=== PATIENT | male | born 1970 | race Caucasian/White ===

== ENCOUNTER 2018-11-04 13:40 | Observation (INO) | payer OTHER ==
[2018-11-04] MEDS ORDERED: CLINDAMYCIN 600 MG in DEXTROSE 5% IN WATER 50 ML IVPB STA ×2 (15:24)
[2018-11-04 15:34] LABS: ALT 59 U/L (21-72); AST 51 U/L (17-59); Albumin 4.3 g/dL (3.5-5.0); Alkaline Phosphatase 70 U/L (38-126); Anion Gap 11 mmol/L; Blood Urea Nitrogen 17 mg/dL (9-20); Calcium 8.8 mg/dL (8.4-10.2); Carbon Dioxide 21 mmol/L (22-30); Chloride 107 mmol/L (98-107); Glucose 132 mg/dL (74-99); Potassium 4.3 mmol/L (3.5-5.1); Sodium 139 mmol/L (137-145); Total Bilirubin 0.8 mg/dL (0.2-1.3); Total Protein 7.9 g/dL (6.3-8.2)
[2018-11-04 15:41] LABS: Basophils # (A) 0.1 k/uL (0-0.2); Basophils % (A) 1 %; Eosinophils # (A) 0.2 k/uL (0-0.7); Eosinophils % (A) 2 %; HCT 48.8 % (39.0-53.0); HGB 15.8 gm/dL (13.0-17.5); Lymphocytes # (A) 1.9 k/uL (1.0-4.8); Lymphocytes % (A) 21 %; MCH 28.8 pg (25.0-35.0); MCHC 32.3 g/dL (31.0-37.0); MCV 89.1 fL (80.0-100.0); Mean Platelet Volume 6.6; Monocytes # (A) 0.7 k/uL (0-1.0); Monocytes % (A) 7 %; Neutrophils # (A) 6.1 k/uL (1.3-7.7); Neutrophils % (A) 68 %; Platelet Count 357 k/uL (150-450); RBC 5.48 m/uL (4.30-5.90); RDW 13.6 % (11.5-15.5)
--- NOTE | 2018-11-04 15:55 | ED ---
Lower Extremity Injury HPI - General Chief Complaint: Extremity Injury, Lower Stated Complaint: Foot infection sent by [email or web address] Time Seen by Provider: 11/04/18 14:17 Source: patient Mode of arrival: ambulatory Limitations: no limitations - History of Present Illness Initial Comments: This is a 48-year-old male who denies past medical history presenting today for chief complaint of right foot redness. She states about 2 weeks ago he stepped on with bare feet A. tack strip cutting the lateral aspect just proximal to the MTP joint of the fifth toe of the right foot. He states that since he has noticed occasional pain in the right foot but didnt notice any specific redness. Patient states that his girlfriend who is a nurse evaluated his foot this morning and thought it was infected due to redness with extension toward proximal thigh and that he should present to the emergency department for evaluation. Patient did have another area of injury, he dropped a knife on his right great toe. He states this barely hurt at the time, and he noted mild surrounding erythema of this area as well no pain to palpation or ROM. She states the area of redness near the entry of the tach is tender to palpation. Patient states tetanus is up-to-date within the last 3 years. Patient denies any numbness, tingling, loss sensation. Patient did state he felt as though he had a low-grade fever on Thursday with chills. Patient denies any night sweats. Patient presented to an urgent care clinic an hour prior to arrival in the ER where he was given 1 g of Rocephin and sent to the emergency department for further evaluation. Remaining review of systems negative, Patient denies any shortness of breath, chest pain, back pain, abdominal pain, nausea or vomiting, numbness or tingling, dysuria or hematuria, constipation or diarrhea, headaches or visual changes, or any other complaints. Upon arrival patient is afebrile he does not appear toxic. - Related Data Home Medications Medication Instructions Recorded Confirmed No Known Home Medications 11/04/18 11/04/18 Allergies Allergy/AdvReac Type Severity Reaction Status Date / Time No Known Allergies Allergy Verified 11/04/18 14:00 Review of Systems ROS Statement: Those systems with pertinent positive or pertinent negative responses have been documented in the HPI. ROS Other: All systems not noted in ROS Statement are negative. Past Medical History Past Medical History: No Reported History Additional Past Medical History / Comment(s): Chantal Burnett History of Any Multi-Drug Resistant Organisms: None Reported Past Surgical History: No Surgical Hx Reported Past Psychological History: No Psychological Hx Reported Smoking Status: Never smoker Past Alcohol Use History: None Reported Past Drug Use History: None Reported General Exam - General Exam Comments Initial Comments: General: The patient is awake and alert, in no distress, and does not appear acutely ill. Eye: Pupils are equal, round and reactive to light, extra-ocular movements are intact. No nystagmus. There is normal conjunctiva bilaterally. No signs of icterus. Ears, nose, mouth and throat: There are moist mucous membranes and no oral lesions. Neck: The neck is supple, there is no tenderness or JVD. Cardiovascular: There is a regular rate and rhythm. No murmur, rub or gallop is appreciated. Respiratory: Lungs are clear to auscultation, respirations are non-labored, breath sounds are equal. No wheezes, stridor, rales, or rhonchi. Gastrointestinal: [Soft, non-distended, non-tender abdomen without masses or organomegaly noted. There is no rebound or guarding present. No CVA tenderness. Bowel sounds are unremarkable.] Musculoskeletal: Upon inspection of the feet bilaterally, there is dryness and cracking of skin over all plantar aspects of the feet/toes of the feet bilaterally. There is an area of entry over the lateral aspect of the right foot, with wound dehiscence no palpable abscess mild surrounding erythema that extends from the site of injury across the forefoot and up the medial aspect of the leg towards the medial aspect of the right knee. Area is warm to palpation. Patient does admit to mild discomfort with palpation of the erythematous area. Patient is able to fully weight-bear with normal ROM, all 5 digits of the right foot equal comparison to the right and at the right knee and hip. Strength 5/5. Sensation intact of the LE equal b/l. DP rand radial pulses equal bilaterally 2+. Neurological: A&O x 3. CN II-XII intact, There are no obvious motor or sensory deficits. Coordination appears grossly intact. Speech is normal. Skin: Skin is warm and dry and no rashes or lesions are noted. Psychiatric: Cooperative, appropriate mood & affect, normal judgment. Limitations: no limitations Course Vital Signs 11/04/18 14:00 Temperature 98.9 F Pulse Rate 66 Respiratory 18 Rate Blood Pressure 136/78 O2 Sat by Pulse 99 Oximetry Medical Decision Making - Medical Decision Making Well-appearing 48-year-old male presenting today for erythema of the right foot. Patient has history of right foot injury, there is no involvement of the sole shoe. Patient states she is barefoot at this time. Patient on physical examination has extensive cellulitis from the bottom lateral aspect of the right foot extending toward the medial aspect of the right thigh/knee. Patient is afebrile, appears nontoxic. No leukocytosis. Patient was given 1 g of Rocephin prior to arrival. At this time given extent of cellulitis, I feel patient would benefit from [place] with intravenous antibiotics, patient was started on clindamycin 6 her milligrams every [address] Rosas did evaluate patient agreeing with impression and plan. Pt admitted to Dr. Randall. Transferred to the floor in stable condition appearing well. Blood culture pending. - Lab Data Result diagrams: 11/04/18 15:11 11/04/18 15:11 Lab Results 11/04/18 11/04/18 Range/Units 15:11 15:11 WBC 9.0 (3.8-10.6) k/uL RBC 5.48 (4.30-5.90) m/uL Hgb 15.8 (13.0-17.5) gm/dL Hct 48.8 (39.0-53.0) % MCV 89.1 (80.0-100.0) fL MCH 28.8 (25.0-35.0) pg MCHC 32.3 (31.0-37.0) g/dL RDW 13.6 (11.5-15.5) % Plt Count 357 (150-450) k/uL Neutrophils % 68 % Lymphocytes % 21 % Monocytes % 7 % Eosinophils % 2 % Basophils % 1 % Neutrophils # 6.1 (1.3-7.7) k/uL Lymphocytes # 1.9 (1.0-4.8) k/uL Monocytes # 0.7 (0-1.0) k/uL Eosinophils # 0.2 (0-0.7) k/uL Basophils # 0.1 (0-0.2) k/uL Sodium 139 (137-145) mmol/L Potassium 4.3 (3.5-5.1) mmol/L Chloride 107 (98-107) mmol/L Carbon Dioxide 21 L (22-30) mmol/L Anion Gap 11 mmol/L BUN 17 (9-20) mg/dL Creatinine 0.87 (0.66-1.25) mg/dL Est GFR (CKD-EPI)AfAm >90 (>60 ml/min/1.73 sqM) Est GFR (CKD-EPI)NonAf >90 (>60 ml/min/1.73 sqM) Glucose 132 H (74-99) mg/dL Calcium 8.8 (8.4-10.2) mg/dL Total Bilirubin 0.8 (0.2-1.3) mg/dL AST 51 (17-59) U/L ALT 59 (21-72) U/L Alkaline Phosphatase 70 (38-126) U/L Total Protein 7.9 (6.3-8.2) g/dL Albumin 4.3 (3.5-5.0) g/dL Disposition Clinical Impression: Cellulitis of right foot Disposition: ADMITTED IP TO THIS HOSP Condition: Stable Is patient prescribed a controlled substance at d/c from ED?: No Referrals: Jean Carlos Sloan MD [Primary Care Provider] - 1-2 days Time of Disposition: 16:13 Decision to Admit Reason: Admit from EC Decision Date: 11/04/18 Decision Time: 16:13
[2018-11-04] MEDS ORDERED: NALOXONE 0.4 MG/ML 1 ML VIAL IV PRN (16:14)
[2018-11-04] MEDS ORDERED: IBUPROFEN 400 MG TAB PO PRN (16:14)
[2018-11-04] MEDS ORDERED: ACETAMINOPHEN TAB 325 MG TAB PO PRN (16:14)
[2018-11-04] MEDS: SODIUM CHLORIDE 0.9% 1,000 ML IV SCH (17:39)
[2018-11-04] MEDS: CLINDAMYCIN 600 MG in DEXTROSE 5% IN WATER 50 ML IVPB SCH ×2 (23:58)
--- NOTE | 2018-11-05 00:49 | XR ---
EXAM: XR Right Foot Complete, 3 or More Views CLINICAL HISTORY: ITS.REASON XR Reason: foreign body/osteomyelitis TECHNIQUE: Frontal, lateral and oblique views of the right foot. COMPARISON: None FINDINGS: Bones/joints: No acute fracture or dislocation identified. Mild degenerative change of the right first MTP joint. Small plantar calcaneal spur. Mild degenerative changes of the dorsal midfoot. Soft tissues: Possible mild soft tissue swelling and linear lucency in the lateral right foot at the level of the mid fifth metatarsal. No radiopaque foreign body identified. IMPRESSION: No acute fracture or dislocation or evidence of osteomyelitis. Question mild soft tissue swelling and possible soft tissue laceration in the right lateral foot. No radiopaque foreign body identified.
[2018-11-05] MEDS: SODIUM CHLORIDE 0.9% 1,000 ML IV SCH ×2 (05:29→18:10)
--- NOTE | 2018-11-05 07:18 | HP ---
HISTORY AND PHYSICAL CHIEF COMPLAINT: A 48-year-old white male who stepped on some carpet tacking on his right heel 2 weeks ago. He has had increased redness on his foot since then spreading up to the middle of his right leg all the way up above his knee. His girlfriend brought him here, she is a nurse fretted instrument repairer, due to increased redness and swelling and low-grade fevers, failed outpatient treatment. Came to hospital. He came in and was given Rocephin in the ER and admitted to the hospital. Does not appear toxic. MEDICATIONS: Negative home medications. ALLERGIES: Negative. REVIEW OF SYSTEMS: Fourteen point review of systems negative except for mentioned in HPI. No fevers, chills, myalgias. PAST MEDICAL HISTORY: Simons's palsy. SOCIAL HISTORY: No smoking, alcohol or illicit drugs. PHYSICAL EXAMINATION: Vital signs are stable. Afebrile. Pupils equal, round, reactive. LUNGS: Clear. CARDIOVASCULAR: S1, S2. ENT: External ear canals within normal limits. GI: Soft, nontender. INTEGUMENT: As mentioned above. He has some redness and swelling to the middle of the right leg from the ankle up to the mid thigh area up to the hip. Started on IV antibiotics. Await Infectious Disease consultation. Pain control. Tetanus shot 3 years ago. Please see further orders. MMODL / IJN: [id number] /
[2018-11-05] MEDS: CLINDAMYCIN 600 MG in DEXTROSE 5% IN WATER 50 ML IVPB SCH ×4 (08:37→15:42)
[2018-11-05 10:41] LABS: Basophils # (A) 0.1 k/uL (0-0.2); Basophils % (A) 1 %; Eosinophils # (A) 0.2 k/uL (0-0.7); Eosinophils % (A) 2 %; HCT 47.4 % (39.0-53.0); HGB 15.2 gm/dL (13.0-17.5); Lymphocytes # (A) 2.1 k/uL (1.0-4.8); Lymphocytes % (A) 22 %; MCH 28.6 pg (25.0-35.0); MCHC 32.1 g/dL (31.0-37.0); MCV 88.9 fL (80.0-100.0); Mean Platelet Volume 5.9; Monocytes # (A) 0.7 k/uL (0-1.0); Monocytes % (A) 8 %; Neutrophils # (A) 6.1 k/uL (1.3-7.7); Neutrophils % (A) 65 %; Platelet Count 394 k/uL (150-450); RBC 5.33 m/uL (4.30-5.90); RDW 13.4 % (11.5-15.5); WBC 9.3 k/uL (3.8-10.6)
[2018-11-05] MEDS: ceFAZolin IN SWFI 2 GM/20 ML SYRINGE IVP SCH ×2 (17:12→23:08)
[2018-11-05 22:43] VITALS: PULSE 66
[2018-11-06 06:35] VITALS: BP 117/52; RESP 15; TEMP 98.4
--- NOTE | 2018-11-06 09:01 | PN ---
PROGRESS NOTE SUBJECTIVE: This is a white male admitted with cellulitis of the right leg, foot laceration, right heel. Remains on IV at Kefzol 2 g q.8 hours. He has got improvement in the redness and swelling of his entire right leg. Possible discharge home tomorrow if he continues to have improvement on IV Kefzol. Vital signs stable. Afebrile. White count is normal. No fevers. CARDIOVASCULAR: S1, S2. LUNGS: Clear. GI: Soft. Left foot . He is able to touch his right foot without any pain. This is the first time he has done this in days due to severe swelling and redness which is diminishing greatly. Infectious disease consult is appreciated. ASSESSMENT: Laceration right heel, improving. Scab formation in place, cellulitis of the right foot radiating up to the right groin is greatly improved including in the foot. Very minimal redness seen on the leg at this point. Improved cellulitis of the right leg, foot laceration, right heel. Continue current IV antibiotics and possible switch to oral antibiotics and discharged home next 24 hours. MMODL / IJN: [id number] /
--- NOTE | 2018-11-06 09:22 | CONS ---
CONSULTATION DATE OF SERVICE: 11/05/2018. REASON FOR FOLLOWUP: Right foot cellulitis. HISTORY OF PRESENT ILLNESS: The patient is a 48 -year-old male who apparently did have an injury to his right foot when he was walking barefoot on a track strip of his right foot that happened about 2 weeks ago. The patient did not have any significant symptoms at that point except some right pain. No significantly bleeding. However, for the last 3 days, he still noticed having pain in the right foot area. Pain was mostly dull aching, initially going to 2-3 that subsequently increased in intensity and became more painful, more throbbing. The patient subsequently noticed that his right foot became swollen and red. The patient did go to the Urgent Care where the patient did receive a dose of Rocephin and subsequently has been sent to the [facility] ER for further evaluation. The patient was started on clindamycin and admitted to the hospital. Infectious disease was consulted for further recommendation regarding antibiotic therapy. The patient has been admitted to the hospital. No fever has been recorded. The patient's white count was not elevated normal as well. Patient denies having any antibiotic allergies. REVIEW OF SYSTEMS: Positive for weakness. No high-grade fever. Eyes no complaint. ENT no complaint. Respiratory no complaint. Cardiovascular no complaint. no complaint. GASTROINTESTINAL: No complaint. Musculoskeletal as per HPI. INTEGUMENTARY as per HPI. Psychological: No complaint. Endocrine no complaint. Neurologic no complaint. PAST MEDICAL HISTORY: Simons's palsy. PAST SURGICAL HISTORY: No surgery. SOCIAL HISTORY: No history of smoking, drinking or drug use. FAMILY HISTORY: No pertinent findings noticed. ALLERGIES: No known drug allergies. MEDICATIONS: The patient is currently on Clindamycin 600 Narcan, Motrin, Tylenol, and IV fluid. PHYSICAL EXAMINATION: Blood pressure 139/80 with a pulse of 66, temperature 98.8. He is 98% on room air. General description is a middle-aged male lying in bed in no distress. No tachypnea or accessory muscles of respiration use. HEENT: Shows no pallor or scleral icterus. Oral mucosa membranes are dry. No pharyngeal erythema or thrush. Neck trachea central. No thyromegaly. Lungs unlabored breathing. Clear to auscultation anteriorly. No wheeze or crackles. Heart S1, S2. Regular rate and rhythm. ABDOMEN: Soft, no tenderness. No guarding or rigidity. Extremities: No edema of the feet. Examination of the right foot: dorsal aspect, he has minimal swelling and redness and slightly warm to touch. Patient with wound on the plantar aspect of the right foot lateral border. No purulent drainage was noticed. Neurological: Patient is awake, alert, oriented times three. Mood and affect normal. LABS: Hemoglobin is 15.2 with white count 9.3, BUN of 17, creatinine 0.7. X-rays of the foot with soft tissue swelling. No bony changes or any foreign body. DIAGNOSTIC IMPRESSION AND PLAN: Patient with acute right foot cellulitis that started as to the plantar aspect of the right foot likely the site of entry source more likely from a gram-positive skin dominique less likely gram-negative infection. PLAN: 1. Discontinue the clindamycin. 2. Will start the patient on cefazolin 2 g q.8h. 3. We will reevaluate the patient tomorrow and the patient did have shown overall clinical improvement, may be able to finish therapy with oral antibiotic. Thank you for this consultation. We will follow this patient along with you. MMODL / IJN: [id number] /
[2018-11-06] MEDS: ceFAZolin IN SWFI 2 GM/20 ML SYRINGE IVP SCH (09:24)
[2018-11-06] MEDS: SODIUM CHLORIDE 0.9% 1,000 ML IV SCH (09:24)
--- NOTE | 2018-11-06 14:49 | PN ---
PROGRESS NOTE DATE OF SERVICE: 11/06/2018 REASON FOR FOLLOW UP: Right foot cellulitis. INTERVAL HISTORY: The patient is currently afebrile. He has been breathing comfortably. Denies any chest pain or cough. No abdominal pain. Right foot pain and swelling and redness has much improved. PHYSICAL EXAMINATION: Blood pressure 117/52 with a pulse of 66, temperature 98.4. He is 97% on room air. General description is a middle-aged male lying in bed in no distress. Respiratory system: Unlabored breathing. Clear to auscultation anteriorly. Heart S1, S2. Regular rate and rhythm. Abdomen soft, no tenderness. Right foot swelling and redness has improved. LABS: White count 9.3, blood culture negative. DIAGNOSTIC IMPRESSION AND PLAN: Patient with right foot cellulitis. The patient did have a traumatic wound to the plantar aspect of the right foot currently with no evidence of any abscess. The patient's cellulitis has much improved. He wants to go home. Antibiotic will be transitioned to cephalexin 500 mg every six hours for 10 days. Prescription was sent to the pharmacy and the patient advised to follow up in the office in one week. Questions were answered. MMODL / IJN: [id number] /
--- NOTE | 2018-11-17 21:51 | DS ---
DISCHARGE SUMMARY DATE OF ADMISSION: 11/04/2018 DATE OF DISCHARGE: 11/06/2018 DISCHARGE MEDICATION: Keflex 500 mg q.6 hours. CONDITION: Stable. PROGNOSIS: Guarded. Ambulate as tolerated. This is a 48-year-old white male who was admitted to the hospital with right foot pain and swelling and redness, much improved. He was admitted with cellulitis of the right lower extremity with no evidence of an abscess. Osteomyelitis was ruled out. At this time he was sent home on Keflex 500 q.6 hours for 10 days. Follow up as an outpatient. DISCHARGE DIAGNOSIS: Cellulitis of the lower extremity. Condition is stable, prognosis guarded. Follow up as an outpatient. MMODL / IJN: [id number] /
[2018-11-30] MEDS ORDERED: ceFAZolin IN SWFI 2 GM/20 ML SYRINGE IVP SCH
== END 2018-11-06 14:02 | disposition home or self-care (01) ==
LOC: EC 13:40 → 4MS4W 16:13 → UNDOADMOB 16:13 → INTOOBSV 16:13 → 4MS4W 17:01 → UNDODISOB 11-06 14:02 → INTOOBSV 11-29 22:21 → OBSVTOIN 11-29 22:21
PROVIDERS: ADMIT Family Medicine; ATTEND Family Medicine
DX: L03.115 Cellulitis of right lower limb (principal); S91.311A Laceration without foreign body, right foot, initial encounter; W45.8XXA Other foreign body or object entering through skin, initial encounter; Z86.69 Personal history of other diseases of the nervous system and sense organs
CPT/HCPCS: 99284; 96376 ×2; 96361; 96366 ×3; 96375; 96365; 36415; 80053; 85652; 85025 ×2; 87040; 73630; G0378 ×3; J0690 ×2